=== PATIENT | male | born 1955 | race Caucasian/White ===

== ENCOUNTER → 2017-03-04 | Outpatient (REF) | payer OTHER ==
[2017-03-04 10:10] LABS: BASO % 0.2 % (0.0-1.0); EOS # 0.1 K/mm3 (0.0-0.50); EOS % 1.9 % (0.0-3.0); LARGE UNSTAINED CELL # 0.1 K/mm3 (0.0-0.4); LARGE UNSTAINED CELL % 1.8 % (0.0-4.0); LYMPH # 1.9 K/mm3 (1.5-4.5); MEAN CORPUSCULAR HEMOGLOBIN 34.1 pg (27.0-33.0); MEAN CORPUSCULAR HGB CONC 35.6 g/dl (32.0-36.5); MEAN CORPUSCULAR VOLUME 95.8 fl (80.0-96.0); MONO # 0.4 K/mm3 (0.0-0.8); MONO % 5.2 % (0.0-5.0); NEUTROPHILS # 4.3 K/mm3 (1.8-7.7); NEUTROPHILS % 64.9 % (36.0-66.0); PLATELET COUNT, AUTOMATED 141 k/mm3 (150-450); RED CELL DISTRIBUTION WIDTH 12.6 % (11.5-14.5); WHITE BLOOD COUNT 6.7 K/mm3 (4.0-10.0)
[2017-03-04 10:42] LABS: ALBUMIN 4.2 GM/DL (3.2-5.2); ALKALINE PHOSPHATASE 71 U/L (45-117); ALT/SGPT 47 U/L (12-78); ANION GAP 8 MEQ/L (8-16); AST/SGOT 23 U/L (15-37); BILIRUBIN,TOTAL 1.1 MG/DL (0.2-1.0); BLOOD UREA NITROGEN 15 MG/DL (7-18); CALCIUM LEVEL 9.4 MG/DL (8.8-10.2); CARBON DIOXIDE LEVEL 30 MEQ/L (21-32); CHLORIDE LEVEL 101 MEQ/L (98-107); CHOLESTEROL LEVEL 121 MG/DL (<200); CREATININE FOR GFR 1.05 MG/DL (0.70-1.30); GLOMERULAR FILTRATION RATE > 60.0 (>49); GLUCOSE, FASTING 96 MG/DL (80-110); POTASSIUM SERUM 4.2 MEQ/L (3.5-5.1); SODIUM LEVEL 139 MEQ/L (136-145); TOTAL PROTEIN 7.2 GM/DL (6.4-8.2); TRIGLYCERIDES LEVEL 247 MG/DL (<150)
== END ==
LOC: M LABDRAW1 09:41
PROVIDERS: ATTEND Family Medicine
DX: I10 Essential (primary) hypertension (principal)

== ENCOUNTER → 2017-09-05 | Outpatient (REF) | payer OTHER | LOC: M LABDRAW1 07:43 | PROVIDERS: ATTEND Family Medicine | DX: R73.01 Impaired fasting glucose (principal) ==

== ENCOUNTER → 2018-03-06 | Outpatient (REF) | payer OTHER ==
[2018-03-06 11:51] LABS: BASO % 0.3 % (0.0-1.0); EOS # 0.1 10^3/uL (0.0-0.50); EOS % 1.7 % (0.0-3.0); HEMATOCRIT 45.5 % (42.0-52.0); HEMOGLOBIN 15.2 g/dl (13.5-17.5); IMMATURE GRANULOCYTE % 0.2 % (0-3.0); LYMPH % 30.8 % (24.0-44.0); MEAN CORPUSCULAR HEMOGLOBIN 32.5 pg (27.0-33.0); MEAN CORPUSCULAR HGB CONC 33.4 g/dl (32.0-36.5); MEAN CORPUSCULAR VOLUME 97.4 fl (80.0-96.0); MONO # 0.5 10^3/uL (0.0-0.8); NEUTROPHILS # 3.9 10^3/uL (1.8-7.7); PLATELET COUNT, AUTOMATED 132 10^3/uL (150-450); RED BLOOD COUNT 4.67 10^6/uL (4.30-6.10); RED CELL DISTRIBUTION WIDTH 13.2 % (11.5-14.5); WHITE BLOOD COUNT 6.6 10^3/uL (4.0-10.0)
[2018-03-06 12:07] LABS: ALBUMIN 4.1 GM/DL (3.2-5.2); ALBUMIN/GLOBULIN RATIO 1.46 (1.00-1.93); ALKALINE PHOSPHATASE 68 U/L (45-117); ALT/SGPT 39 U/L (12-78); ANION GAP 8 MEQ/L (8-16); AST/SGOT 17 U/L (7-37); BLOOD UREA NITROGEN 20 MG/DL (7-18); CALCIUM LEVEL 9.1 MG/DL (8.8-10.2); CARBON DIOXIDE LEVEL 28 MEQ/L (21-32); CHLORIDE LEVEL 104 MEQ/L (98-107); CHOLESTEROL LEVEL 102 MG/DL (<200); CREATININE FOR GFR 0.88 MG/DL (0.70-1.30); GLOMERULAR FILTRATION RATE > 60.0 (>49); GLUCOSE, FASTING 100 MG/DL (70-100); HDL CHOLESTEROL 33 MG/DL (>40); NON-HDL-C 69 MG/DL; POTASSIUM SERUM 4.3 MEQ/L (3.5-5.1); SODIUM LEVEL 140 MEQ/L (136-145); TOTAL PROTEIN 6.9 GM/DL (6.4-8.2); TRIGLYCERIDES LEVEL 190 MG/DL (<150)
[2018-03-06 12:52] LABS: ESTIMATED AVERAGE GLUCOSE 120 MG/DL (60-110); HEMOGLOBIN A1c 5.8 %
== END ==
LOC: M LABDRAW1 11:29
DX: I10 Essential (primary) hypertension (principal); R73.01 Impaired fasting glucose

== ENCOUNTER → 2019-02-23 | Outpatient (REF) | payer MEDICARE, OTHER ==
[2019-02-23 11:38] LABS: BASO % 0.6 % (0.0-1.0); EOS # 0.1 10^3/uL (0.0-0.50); EOS % 1.5 % (0.0-3.0); HEMATOCRIT 45.1 % (42.0-52.0); HEMOGLOBIN 15.8 g/dl (13.5-17.5); LYMPH % 30.4 % (24.0-44.0); MEAN CORPUSCULAR HEMOGLOBIN 33.2 pg (27.0-33.0); MEAN CORPUSCULAR VOLUME 94.7 fl (80.0-96.0); MONO # 0.5 10^3/uL (0.0-0.8); MONO % 7.5 % (0.0-5.0); NEUTROPHILS % 59.9 % (36.0-66.0); PLATELET COUNT, AUTOMATED 142 10^3/uL (150-450); RED BLOOD COUNT 4.76 10^6/uL (4.30-6.10); WHITE BLOOD COUNT 6.7 10^3/uL (4.0-10.0)
[2019-02-23 12:00] LABS: HEMOGLOBIN A1c 6.2 %
[2019-02-23 12:35] LABS: ALBUMIN 4.1 GM/DL (3.2-5.2); ALT/SGPT 49 U/L (12-78); BILIRUBIN,TOTAL 1.3 MG/DL (0.2-1.0); BLOOD UREA NITROGEN 15 MG/DL (7-18); CALCIUM LEVEL 8.7 MG/DL (8.8-10.2); CARBON DIOXIDE LEVEL 25 MEQ/L (21-32); CHLORIDE LEVEL 101 MEQ/L (98-107); CHOLESTEROL LEVEL 131 MG/DL (<200); CHOLESTEROL RISK RATIO 4.678 (<5); GLOMERULAR FILTRATION RATE > 60.0 (>49); GLUCOSE, FASTING 105 MG/DL (70-100); HDL CHOLESTEROL 28 MG/DL (>40); NON-HDL-C 103 MG/DL; POTASSIUM SERUM 3.7 MEQ/L (3.5-5.1); SODIUM LEVEL 136 MEQ/L (136-145); TRIGLYCERIDES LEVEL 510 MG/DL (<150)
[2019-02-23 13:02] LABS: TOTAL 25(OH) VITAMIN D 47.9 NG/ML (30.0-100.0)
== END ==
LOC: M LABDRAW1 11:03
PROVIDERS: ATTEND Family Medicine
DX: I10 Essential (primary) hypertension (principal); R73.01 Impaired fasting glucose; E55.9 Vitamin D deficiency, unspecified

== ENCOUNTER → 2019-08-18 | Outpatient (REF) | payer MEDICARE, OTHER ==
[2019-08-18 11:59] LABS: CHOLESTEROL RISK RATIO 4.483 (<5)
[2019-08-18 13:31] LABS: HEMOGLOBIN A1c 6.6 %
== END ==
LOC: M LABDRAW1 11:00
PROVIDERS: ATTEND Physician Assistant
DX: E78.2 Mixed hyperlipidemia (principal); R73.01 Impaired fasting glucose

== ENCOUNTER → 2019-11-24 | Outpatient (REF) | payer MEDICARE, OTHER ==
[2019-11-24 17:45] LABS: HEMOGLOBIN A1c 6.2 %
== END ==
LOC: M LABDRAW1 15:26
PROVIDERS: ATTEND Family Medicine
DX: R73.03 Prediabetes (principal)

== ENCOUNTER → 2020-02-23 | Outpatient (CLI) | payer MEDICARE, OTHER ==
[2020-02-23 12:20] LABS: CHOLESTEROL LEVEL 128 MG/DL (<200); CHOLESTEROL RISK RATIO 4.923 (<5); HDL CHOLESTEROL 26 MG/DL (>40); NON-HDL-C 102 MG/DL; TRIGLYCERIDES LEVEL 443 MG/DL (<150)
[2020-02-23 13:42] LABS: HEMOGLOBIN A1c 6.6 %
== END ==
LOC: M LAB 10:54
PROVIDERS: ATTEND Nurse Practitioner Family
DX: R73.03 Prediabetes (principal)

== ENCOUNTER → 2020-05-25 | Outpatient (CLI) | payer MEDICARE, OTHER ==
[2020-05-25 11:55] LABS: ALBUMIN 4.1 GM/DL (3.2-5.2); ALT/SGPT 84 U/L (12-78); BILIRUBIN,TOTAL 0.5 MG/DL (0.2-1.0); BLOOD UREA NITROGEN 18 MG/DL (7-18); CALCIUM LEVEL 9.6 MG/DL (8.8-10.2); CARBON DIOXIDE LEVEL 28 MEQ/L (21-32); CHLORIDE LEVEL 102 MEQ/L (98-107); GLOMERULAR FILTRATION RATE > 60.0 (>49); GLUCOSE, FASTING 133 MG/DL (70-100); SODIUM LEVEL 137 MEQ/L (136-145); TOTAL PROTEIN 7.2 GM/DL (6.4-8.2)
[2020-05-25 11:59] LABS: HEMOGLOBIN A1c 6.4 %
[2020-05-25 12:03] LABS: MALB URINE SIEMENS 25.8 MG/L
== END ==
LOC: M LAB 10:21
PROVIDERS: ATTEND Nurse Practitioner Family
DX: R73.03 Prediabetes (principal); I10 Essential (primary) hypertension; E78.2 Mixed hyperlipidemia

== ENCOUNTER → 2020-11-21 | Outpatient (CLI) | payer MEDICARE, OTHER ==
[2020-11-21 10:18] LABS: HEMOGLOBIN A1c 5.8 %
[2020-11-21 10:29] LABS: MALB URINE SIEMENS 24.4 MG/L; MAU/CREAT RATIO 10.1 MCG/MG (0.0-30.0)
[2020-11-21 10:36] LABS: ALBUMIN 4.2 GM/DL (3.2-5.2); ALT/SGPT 64 U/L (12-78); BILIRUBIN,TOTAL 0.9 MG/DL (0.2-1.0); BLOOD UREA NITROGEN 22 MG/DL (7-18); CALCIUM LEVEL 9.4 MG/DL (8.8-10.2); CARBON DIOXIDE LEVEL 25 MEQ/L (21-32); CHLORIDE LEVEL 107 MEQ/L (98-107); CHOLESTEROL LEVEL 145 MG/DL (<200); CREATININE FOR GFR 0.89 MG/DL (0.70-1.30); GLOMERULAR FILTRATION RATE > 60.0 (>49); GLUCOSE, FASTING 111 MG/DL (70-100); HDL CHOLESTEROL 27 MG/DL (>40); NON-HDL-C 118 MG/DL; POTASSIUM SERUM 3.9 MEQ/L (3.5-5.1); SODIUM LEVEL 139 MEQ/L (136-145); TOTAL PROTEIN 7.3 GM/DL (6.4-8.2); TRIGLYCERIDES LEVEL 481 MG/DL (<150)
== END ==
LOC: M LAB 08:57
PROVIDERS: ATTEND Nurse Practitioner Family
DX: R73.03 Prediabetes (principal)

== ENCOUNTER 2021-08-29 16:11 | Emergency (ER) | payer MEDICARE, OTHER ==
[~2021-08-29] VITALS: Ht 172.7 cm; Wt 90.9 kg
--- OUTSIDE RECORDS SUMMARY | 2021-08-29 16:17 | CCD ---
Author Author [facility] Organization [facility] Address Unknown Phone Unavailable Care Team Providers Care Dry Cell Assembly Supervisor Name Role Phone Pleskach, Ceci BUCKET PUSHER Unavailable Unavailable Pleskach, Ceci BUCKET PUSHER Unavailable Unavailable Pleskach, Ceci BUCKET PUSHER Unavailable Unavailable Pleskach, Ceci BUCKET PUSHER Unavailable Unavailable Pleskach, Ceci BUCKET PUSHER Unavailable Unavailable Pleskach, Ceci BUCKET PUSHER Unavailable Unavailable Pleskach, Ceci BUCKET PUSHER Unavailable Unavailable Pleskach, Ceci BUCKET PUSHER Unavailable Unavailable Pleskach, Ceci BUCKET PUSHER Unavailable Unavailable Pleskach, Ceci BUCKET PUSHER Unavailable Unavailable Pleskach, Ceci BUCKET PUSHER Unavailable Unavailable Pleskach, Ceci BUCKET PUSHER Unavailable Unavailable Pleskach, Ceci BUCKET PUSHER Unavailable Unavailable Pleskach, Ceci BUCKET PUSHER Unavailable Unavailable Pleskach, Ceci BUCKET PUSHER Unavailable Unavailable Pleskach, Ceci BUCKET PUSHER Unavailable Unavailable Pleskach, Ceci BUCKET PUSHER Unavailable Unavailable Pleskach, Ceci BUCKET PUSHER Unavailable Unavailable Pleskach, Ceci BUCKET PUSHER Unavailable Unavailable Pleskach, Ceci BUCKET PUSHER Unavailable Unavailable Pleskach, Ceci BUCKET PUSHER Unavailable Unavailable Pleskach, Ceci BUCKET PUSHER Unavailable Unavailable Pleskach, Ceci BUCKET PUSHER Unavailable Unavailable Pleskach, Ceci BUCKET PUSHER Unavailable Unavailable Pleskach, Ceci BUCKET PUSHER Unavailable Unavailable Pleskach, Ceci BUCKET PUSHER Unavailable Unavailable Pleskach, Ceci BUCKET PUSHER Unavailable Unavailable Pleskach, Ceci BUCKET PUSHER Unavailable Unavailable Pleskach, Ceci BUCKET PUSHER Unavailable Unavailable Pleskach, Ceci BUCKET PUSHER Unavailable Unavailable Pleskach, Ceci BUCKET PUSHER Unavailable Unavailable Pleskach, Ceci BUCKET PUSHER Unavailable Unavailable Pleskach, Ceci BUCKET PUSHER Unavailable Unavailable Pleskach, Ceci BUCKET PUSHER Unavailable Unavailable Pleskach, Ceci BUCKET PUSHER Unavailable Unavailable Pleskach, Ceci BUCKET PUSHER Unavailable Unavailable Pleskach, Ceci BUCKET PUSHER Unavailable Unavailable Pleskach, Ceci BUCKET PUSHER Unavailable Unavailable Pleskach, Ceci BUCKET PUSHER Unavailable Unavailable Pleskach, Ceci BUCKET PUSHER Unavailable Unavailable Pleskach, Ceci BUCKET PUSHER Unavailable Unavailable Pleskach, Ceci BUCKET PUSHER Unavailable Unavailable Pleskach, Ceci BUCKET PUSHER Unavailable Unavailable Pleskach, Ceci BUCKET PUSHER Unavailable Unavailable Re-disclosure Warning The records that you are about to access may contain information from federally-assisted alcohol or drug abuse programs. If such information is present, then the following federally mandated warning applies: This information has been disclosed to you from records protected by federal confidentiality rules (42 CFR part 2). The federal rules prohibit you from making any further disclosure of this information unless further disclosure is expressly permitted by the written consent of the person to whom it pertains or as otherwise permitted by 42 CFR part 2. A general authorization for the release of medical or other information is NOT sufficient for this purpose. The Federal rules restrict any use of the information to criminally investigate or prosecute any alcohol or drug abuse patient.The records that you are about to access may contain highly sensitive health information, the redisclosure of which is protected by Article 27-F of the [facility] Public Health law. If you continue you may have access to information: Regarding HIV / AIDS; Provided by facilities licensed or operated by the [facility] Office of Mental Health; or Provided by the [facility] Office for People With Developmental Disabilities. If such information is present, then the following [facility] mandated warning applies: This information has been disclosed to you from confidential records which are protected by state law. State law prohibits you from making any further disclosure of this information without the specific written consent of the person to whom it pertains, or as otherwise permitted by law. Any unauthorized further disclosure in violation of state law may result in a fine or care home sentence or both. A general authorization for the release of medical or other information is NOT sufficient authorization for further disc losure. Family History Family Member Name Family Member Gender Family Member Status Date o f Status Description Data Source(s) Unknown Unknown Problem [facility] Encounters Encounter Providers Location Date Indications Data Source(s ) Outpatient Attender: Ceci Goss [facility] Main Office 11/28/2020 0 7:00:00 AM EST [facility] Medications No Information Insurance Providers Payer name Policy type / Coverage type Policy ID Covered alliance party ID Covered alliance party's relationship to berman Policy Berman Plan Information FOR LIFE [id number] SP [id number] MEDICARE [id number] SP [id number] [facility] [id number] SP [id number] [facility] Claim Medigap Part B [id number] Self [id number] Medicare [place] Medicare Primary [id number] Self [id number] [facility] Claim Commercial [id number] Self [id number] [facility] [id number] SP [id number] [facility] Commercial [id number] Self [id number] [facility] Commercial [id number] Self [id number] [facility] Commercial [id number] [facility] [id number] Problems, Conditions, and Diagnoses No Information Surgeries/Procedures No Information Results ID Date Data Source [id number] 11/21/2020 09:13:00 AM EST [facility] Name Value Range Interpretation Code Description Data Estrella rce(s) Supporting Document(s) Malb Urine Siemens 24.4 mg/L [facility] Creatinine, Urine 240.0 mg/dL [facility] Ocdy/Creat Ratio 10.1 MCG/MG 0.0-30.0 [facility] ([facility] THE [employer] STATES THAT MICROALBUMINURIA IS PRESENT IF THE MICROALBUMIN/CREATININE RATIO EXCEEDS 30 MCG/MG. THE THRESHOLD FOR CLINICAL ALBUMINURIA IS REACHED AT 300 MCG/MG. THE CLASSIFICATION OF A PATIENT SHOULD BE BASED UPON AT LEAST 2 OF 3 ABNORMAL RESULTS ON SPECIMENS COLLECTED WITHIN A 3 TO 6 MONTH TIME FRAME. ID Date Data Source [id number] 11/21/2020 09:08:00 AM EST [facility] Name Value Range Interpretation Code Description Data Estrella rce(s) Supporting Document(s) HDL Cholesterol 27 mg/dL [facility] Cholesterol Level 145 mg/dL [facility] Triglycerides Level 481 mg/dL [facility] Cholesterol Risk Ratio 5.370 [facility] Non-HDL-C 118 mg/dL [facility] ID Date Data Source [id number] 11/21/2020 09:08:00 AM EST [facility] Name Value Range Interpretation Code Description Data Estrella rce(s) Supporting Document(s) Hemoglobin A1c/Hemoglobin.total in Blood 5.8 % [facility] <content>REFERENCE RANGES:</content><br/ ><content></content>
<content><=5.6% NORMAL</content>
<content>5.7-6.4% SUGGESTS IMPAIRED GLUCOSE METABOLISM/PREDIABETIC</content>
<content>>= 6.5% ABNORMAL</content>
<content></content> Estimated Average Glucose 120 mg/dL 60-110 [facility] ID Date Data Source [id number] 11/21/2020 09:08:00 AM EST [facility] Name Value Range Interpretation Code Description Data Estrella rce(s) Supporting Document(s) Glucose, Fasting 111 mg/dL 70-100 [facility] Creatinine For GFR 0.89 mg/dL 0.70-1.30 [facility] Blood Urea Nitrogen 22 mg/dL 7-18 [facility] Glomerular Filtration Rate Laboratory test result [facility] <content>Units are mL/min/1.73 m2</content>
<content></content>
<content>Chronic Kidney Disease Staging per NKF:</content>
<content></content>
<content>Stage I & II GFR >=60 Normal to Mildly Decreased</content>
<content>Stage III GFR 30-59 Moderately Decreased</content>
<content>Stage IV GFR 15-29 Severely Decreased</content>
<content>Stage V GFR <15 Very Little GFR Left</content>
<content>ESRD GFR <15 on DECKHAND CLAM DREDGE</content>
<content></content> Chloride Level 107 meq/L 98-107 [facility] Sodium Level 139 meq/L 136-145 [facility] Potassium Serum 3.9 meq/L 3.5-5.1 [facility] Carbon Dioxide Level 25 meq/L 21-32 [facility] ([facility] Anion Gap 7 meq/L 8-16 [facility] Ast/Sgot 30 U/L 7-37 [facility] Calcium Level 9.4 mg/dL 8.8-10.2 [facility] Alkaline Phosphatase 72 U/L 45-117 [facility] Bilirubin,Total 0.9 mg/dL 0.2-1.0 [facility] Alt/SGPT 64 U/L 12-78 [facility] Total Protein 7.3 GM/DL 6.4-8.2 [facility] Albumin/Globulin Ratio 1.4 [facility] Albumin 4.2 GM/DL 3.2-5.2 [facility] Procedure Social History Code Duration Value Status Description Data Source(s ) Smoking 11/28/2020 12:00:00 AM EST - 12/22/2018 12:00:00 AM EDT Patient is a former smoker completed Patient is a former smoker [facility] Vital Signs ID Date Data Source UNK Name Value Range Interpretation Code Description Data Source(s) Systolic blood pressure 165 mm[Hg] 165 mm[Hg] M [facility] Heart rate 44 /min 44 /min [facility] Diastolic blood pressure 67 mm[Hg] 67 mm[Hg] [facility] Body temperature 97.7 [degF] 97.7 [degF] [facility] Systolic blood pressure 155 mm[Hg] 155 mm[Hg] M [facility] Respiratory rate 16 /min 16 /min [facility] ( [facility] Body height 67.5 [in_i] 67.5 [in_i] [facility] 5'7.50" Diastolic blood pressure 67 mm[Hg] 67 mm[Hg] [facility] Body weight 212.50 [lb_av] 212.50 [lb_av] [facility] Oxygen saturation in Arterial blood by Pulse oximetry 98 % 98 % [facility] [place] body weight 148 [lb_av] 148 [lb_av] [facility] Body mass index (BMI) [Ratio] 32.8 kg/m2 32.8 k g/m2 [facility]
--- OUTSIDE RECORDS SUMMARY | 2021-08-29 16:17 | CCD ---
Continuity of Care Document (CCD) Created on: 08/07/2021 Armaan Suresh External Reference #: [id number] : [id number] Sex: Male Author Author [facility]an [facility] Organization Unknown Address [address] [place] [address] Phone [phone] Care Team Providers Care Tube Draw Helper Name Role Phone [facility] - Physical Therapist AUTM [phone] Problems Active Problems Provider Date Mixed hyperlipidemia Nohelia Langston M.D. Onset: 011 Essential hypertension Nohelia Langston M.D. Onset: 03/19 Obesity Nohelia Langston M.D. Onset: 03/19/20 11 Social History Type Date Description Comments Sex Unknown Tobacco Use Start: Unknown End: Unknown denies cigarette use Tobacco Use Start: Unknown Never Used Smokeless Tobacco ETOH Use Occasionally consumes alcohol 2 drinks a week Recreational Drug Use Denies Drug Use Tobacco Use Start: Unknown End: Patient is a former smoker 2 pipes per day, 3-4 years Smoking Status Reviewed: 11/28/20 Patient is a former smoker 2 pipes per day, 3- 4 years Exercise Type/Frequency Exercises sporadically Tattoo/Piercing None Sun Exposure Uses sunscreen Occasionally Seat Belt/Car Seat Always uses seat belt Bike Helmet Never Does not bike ri de. Smoke Alarms Yes Smoke Alarms Carbon Monoxide Detector: Yes Allergies and adverse reactions Active Allergies Criticality Reaction | Severity Comments Date NKDA Unable to assess criticality 04/16/2011 Seasonal Unable to assess criticality hay fever an d pollen 11/05/2007 Cough Syrups-OTC Unable to assess criticality ab used to get high as a teenager 11/05/2007 Medications Active Medications SIG Qnty Indications Ordering Provide r Date Micardis HCT 80-25mg Tablets Take 1 Tablet Daily 90tabs I10 Ceci Quan FNP 05/31/2020 Vitamin D (Ergocalciferol) 1.25mg (52072 Ut) Capsules Take 1 Capsule Weekly 12caps E55.9 Ceci Quan FN P 08/03/2019 Ventolin HFA 108(90Base) mcg/Act A erosol 2 puffs every 4 hours as needed 18gm R05 Nohelia Langston M.D. 07/09/2016 Fluticasone Propionate 50mcg/Act Suspension one to two sprays each side of nose daily as needed 3units R09.82 Nohelia Langston M.D. 11/30/2014 Simvastatin 20mg Tablets 1 by mouth every day 90tabs I10 Nohelia Langston M.D. 015 Sertraline HCL 100mg Tablets 1 by mouth every day 90tabs Nohelia Langston M.D. [address] 1 po qd as needed for headaches otc Unknown Immunizations CPT Code Status Date Vaccine Lot # [id number] Given 06/24/2019 Influenza Virus Vaccine, Steffen drivalent,multidose vial [id number] 20688 Given 07/01/2018 Influenza Virus Vaccine, Steffen drivalent,multidose vial [id number] 22884 Given 03/10/2018 Boostrix (Tdap) Tetnus, Diphtheria Toxoids & Acellular Pertussis [id number] 08773 Given 06/24/2017 Influenza Vaccination [id number] 09687 Given 07/09/2016 Influenza Vaccination [id number] 10112 Given 07/06/2015 Influenza Vaccination [id number] 39552 Given 07/13/2013 Influenza Vaccination [id number] 47423 Given 06/06/2012 Influenza Vaccination [id number] 40182 Given 07/02/2011 Influenza Vaccination [id number] Given 07/17/2010 Influenza Vaccination [id number] 69390 Given 07/08/2009 Influenza Vaccination [id number] 47602 Given 07/12/2008 Influenza Vaccination [id number] 45550 Refused 02/25/2019 Zoster (Shingles ) Vaccine (HZV), Recombinant, Subunit, Adjuvanted [id number] Refused 02/25/2019 Prevnar 13 Vital Signs Date Vital Result Comment 11/28/2020 8:14am BP Systolic 165 mmHg BP Diastolic 67 mmHg BP Systolic Recheck 155 mmHg BP Diastolic Recheck 67 mmHg Heart Rate 44 /min Body Temperature 97.7 F Respiratory Rate 16 /min Height 67.5 inches 5'7.50" Weight 212.50 lb O2 % BldC Oximetry 98 % Peak Expiratory Flow Rate 460 Estimated Peak Flow Rate [place] Body Weight 148 lb BMI (Body Mass Index) 32.8 kg/m2 05/31/2020 8:01am BP Systolic 155 mmHg BP Diastolic 76 mmHg BP Systolic Recheck 153 mmHg BP Diastolic Recheck 72 mmHg Heart Rate 57 /min Body Temperature 96.2 F Respiratory Rate 17 /min Height 67.5 inches 5'7.50" Weight 218.25 lb O2 % BldC Oximetry 96 % Peak Expiratory Flow Rate 460 Estimated Peak Flow Rate Right Visual Acuity Distance 20/40 uncorrected Left Visual Acuity Distance 20/30-2 Both Visual Acuity Distance 20/30 [place] Body Weight 148 lb BMI (Body Mass Index) 33.7 kg/m2 Results Description No Information Available Procedures Description No Information Available Medical Devices Description No Information Available Encounters Description No Information Available Assessments Description No Information Available Plan of Treatment 11/28/2020 - Ceci Quan FNP* I10 Essential (primary) hypertension* Comments:* controlled on current medications * Follow up:* 6 months, with labs for annual * E78.2 Mixed hyperlipidemia* Comments:* controlled, continue statin * R73.03 Prediabetes* Comments:* A1C is down to 5.8, continue to monitor * Recommendations:* Follow a lower carbohydrate diet with regular cardiovascular exercise. We recommend at least 30 minutes of cardiovascular exercise 3-5 days per week. Please do not hesitate to contact us with any questions or concerns. We would be happy to set you up with a dietitian for further dietary assistance. Functional Status Functional Condition Comment Date Status Glasses 1.5 reading glasses Active Independent with all ADL's Activ e Hearing Aid in both ears doesn't wear all the time Active Independent with cleaning Active Independent with cooking Active Independent with medication management Active Independent with money management Active Mental Status Mental Condition Comment Date Status None Active Referrals Description No Information Available
[2021-08-29] MEDS ORDERED: FLUTISP NARES (16:33)
[2021-08-29] MEDS ORDERED: DRIS50003 PO ×2 (16:33)
[2021-08-29] MEDS ORDERED: RANI15TA PO (16:33)
[2021-08-29] MEDS ORDERED: MICA80TA2 (16:33)
[2021-08-29] MEDS ORDERED: SIMV20TA22 (16:33)
[2021-08-29] MEDS ORDERED: ZOLO100T (16:33)
[2021-08-29] MEDS ORDERED: ACETAMINOPHEN 500 MG TAB PO ONE (17:05)
--- NOTE | 2021-08-29 17:17 | REP ---
INDICATION: Coronavirus workup. COMPARISON: 03/19/2011. TECHNIQUE: Single portable AP view of the chest was performed. FINDINGS: There may be some mild peripheral infiltrate in the bilateral lung bases. The heart is not significantly enlarged. The mediastinal silhouette is unremarkable. The visualized osseous structures are intact. IMPRESSION: There may be some mild peripheral infiltrate in the bilateral lung bases. <Electronically signed by Payam Burgos > 08/29/21 1190
[2021-08-29 17:34] LABS: BASO % 0.2 % (0.0-1.0); EOS % 0.2 % (0.0-3.0); HEMATOCRIT 46.2 % (42.0-52.0); HEMOGLOBIN 16.5 g/dl (13.5-17.5); LYMPH # 0.8 10^3/uL (1.5-5.0); LYMPH % 17.4 % (24.0-44.0); MEAN CORPUSCULAR HEMOGLOBIN 31.7 pg (27.0-33.0); MEAN CORPUSCULAR HGB CONC 35.7 g/dl (32.0-36.5); MEAN CORPUSCULAR VOLUME 88.8 fl (80.0-96.0); MONO # 0.4 10^3/uL (0.0-0.8); MONO % 8.4 % (2.0-8.0); NEUTROPHILS # 3.4 10^3/uL (1.5-8.5); NEUTROPHILS % 73.6 % (36.0-66.0); PLATELET COUNT, AUTOMATED 104 10^3/uL (150-450); WHITE BLOOD COUNT 4.6 10^3/uL (4.0-10.0)
[2021-08-29] MEDS ORDERED: NS 1,000 ML IV ONE (17:35)
--- OUTSIDE RECORDS SUMMARY | 2021-08-29 17:45 | CCD ---
Author Author [facility] Organization [facility] Address Unknown Phone Unavailable Care Team Providers Care Conventional Mortgage Underwriter Name Role Phone Pleskach, Ceci STUNT WOMAN Unavailable Unavailable Pleskach, Ceci STUNT WOMAN Unavailable Unavailable Pleskach, Ceci STUNT WOMAN Unavailable Unavailable Pleskach, Ceci STUNT WOMAN Unavailable Unavailable Pleskach, Ceci STUNT WOMAN Unavailable Unavailable Pleskach, Ceci STUNT WOMAN Unavailable Unavailable Pleskach, Ceci STUNT WOMAN Unavailable Unavailable Pleskach, Ceci STUNT WOMAN Unavailable Unavailable Pleskach, Ceci STUNT WOMAN Unavailable Unavailable Pleskach, Ceci STUNT WOMAN Unavailable Unavailable Pleskach, Ceci STUNT WOMAN Unavailable Unavailable Pleskach, Ceci STUNT WOMAN Unavailable Unavailable Pleskach, Ccei STUNT WOMAN Unavailable Unavailable Pleskach, Ceci STUNT WOMAN Unavailable Unavailable Pleskach, Ceci STUNT WOMAN Unavailable Unavailable Pleskach, Ceci STUNT WOMAN Unavailable Unavailable Pleskach, Ceci STUNT WOMAN Unavailable Unavailable Pleskach, Ceci STUNT WOMAN Unavailable Unavailable Pleskach, Ceci STUNT WOMAN Unavailable Unavailable Pleskach, Ceci STUNT WOMAN Unavailable Unavailable Pleskach, Ceci STUNT WOMAN Unavailable Unavailable Pleskach, Ceci STUNT WOMAN Unavailable Unavailable Pleskach, Ceci STUNT WOMAN Unavailable Unavailable Pleskach, Ceci STUNT WOMAN Unavailable Unavailable Pleskach, Ceci STUNT WOMAN Unavailable Unavailable Pleskach, Ceci STUNT WOMAN Unavailable Unavailable Pleskach, Ceci STUNT WOMAN Unavailable Unavailable Pleskach, Ceci STUNT WOMAN Unavailable Unavailable Pleskach, Ceci STUNT WOMAN Unavailable Unavailable Pleskach, Ceci STUNT WOMAN Unavailable Unavailable Pleskach, Ceci STUNT WOMAN Unavailable Unavailable Pleskach, Ceci STUNT WOMAN Unavailable Unavailable Pleskach, Ceci STUNT WOMAN Unavailable Unavailable Pleskach, Ceci STUNT WOMAN Unavailable Unavailable Pleskach, Ceci STUNT WOMAN Unavailable Unavailable Pleskach, Ceci STUNT WOMAN Unavailable Unavailable Pleskach, Ceci STUNT WOMAN Unavailable Unavailable Pleskach, Ceci STUNT WOMAN Unavailable Unavailable Pleskach, Ceci STUNT WOMAN Unavailable Unavailable Pleskach, Ceci STUNT WOMAN Unavailable Unavailable Pleskach, Ceci STUNT WOMAN Unavailable Unavailable Pleskach, Ceci STUNT WOMAN Unavailable Unavailable Pleskach, Ceci STUNT WOMAN Unavailable Unavailable Pleskach, Ceci STUNT WOMAN Unavailable Unavailable Re-disclosure Warning The records that [...] is protected by Article 27-F of the [facility] Public Health law. If you continue you may have access to information: Regarding HIV / AIDS; Provided by facilities licensed or operated by the [facility] Office of Mental Health; or Provided by the [facility] Office for People With Developmental Disabilities. If such information is present, then the following [facility] mandated warning applies: This information has [...] law may result in a fine or penitentiary sentence or both. A general authorization for the release of medical or other information is NOT sufficient authorization for further disc losure. Family History Family Member Name Family Member Gender Family Member Status Date o f Status Description Data Source(s) Unknown Unknown Problem [facility] Encounters Encounter Providers Location Date Indications Data Source(s ) Outpatient Attender: Ceci Goss [facility] Main Office 11/28/2020 0 7:00:00 AM EST [facility] ([facility] Medications No Information Insurance Providers Payer name Policy type / Coverage type Policy ID Covered constitution party ID Covered constitution party's relationship to berman Policy Berman Plan Information FOR LIFE [id number] SP [id number] MEDICARE [id number] SP [id number] [facility] [id number] SP [id number] [facility] Claim Medigap Part B [id number] Self [id number] Medicare [place] Medicare Primary [id number] Self [id number] [facility] Claim Commercial [id number] Self [id number] [facility] [id number] SP [id number] [facility] Commercial [id number] Self [id number] [facility] Commercial [id number] Self [id number] [facility] Commercial [id number] [facility] [id number] Problems, Conditions, and Diagnoses No Information Surgeries/Procedures No Information Results ID Date Data Source [id number] 11/21/2020 09:13:00 AM EST [facility] ([facility] Name Value Range Interpretation Code Description Data Estrella rce(s) Supporting Document(s) Malb Urine Siemens 24.4 mg/L [facility] Creatinine, Urine 240.0 mg/dL [facility] ([facility] Cody/Creat Ratio 10.1 MCG/MG 0.0-30.0 [facility] ([facility] THE [place] STATES THAT MICROALBUMINURIA IS PRESENT IF THE MICROALBUMIN/CREATININE RATIO EXCEEDS 30 MCG/MG. THE THRESHOLD FOR CLINICAL ALBUMINURIA IS REACHED AT 300 MCG/MG. THE CLASSIFICATION OF A PATIENT SHOULD BE BASED UPON AT LEAST 2 OF 3 ABNORMAL RESULTS ON SPECIMENS COLLECTED WITHIN A 3 TO 6 MONTH TIME FRAME. ID Date Data Source [id number] 11/21/2020 09:08:00 AM EST [facility] ([facility] [...] [facility] ID Date Data Source [id number] 11/21/2020 09:08:00 AM EST [facility] ([facility] Name Value Range Interpretation Code Description Data Estrella rce(s) Supporting Document(s) Hemoglobin A1c/Hemoglobin.total in Blood 5.8 % [facility] <content>REFERENCE RANGES:</content><br/ ><content></content>
<content><=5.6% NORMAL</content>
<content>5.7-6.4% SUGGESTS IMPAIRED GLUCOSE METABOLISM/PREDIABETIC</content>
<content>>= 6.5% ABNORMAL</content>
<content></content> Estimated Average Glucose 120 mg/dL 60-110 [facility] ID Date Data Source [id number] 11/21/2020 09:08:00 AM EST [facility] ([facility] [...] Little GFR Left</content>
<content>ESRD GFR <15 on WATER [employer]</content>
<content></content> Chloride Level 107 meq/L 98-107 [facility] [...] Value Range Interpretation Code Description Data Source(s) Heart rate 44 /min 44 /min [facility] Systolic blood pressure 165 mm[Hg] 165 mm[Hg] M [facility] ([facility] Diastolic blood pressure 67 mm[Hg] 67 mm[Hg] [facility] Systolic blood pressure 155 mm[Hg] 155 mm[Hg] M [facility] Body temperature 97.7 [degF] 97.7 [degF] [facility] Respiratory rate 16 /min 16 /min [facility] ( [facility] Body height 67.5 [in_i] 67.5 [in_i] [facility] 5'7.50" Body weight 212.50 [lb_av] 212.50 [lb_av] [facility] T ([facility] Oxygen saturation in Arterial blood by Pulse oximetry 98 % 98 % [facility] [place] body weight 148 [lb_av] 148 [lb_av] [facility] T ([facility] Body mass index (BMI) [Ratio] 32.8 kg/m2 32.8 k g/m2 [facility] Diastolic blood pressure 67 mm[Hg] 67 mm[Hg] [facility]
[2021-08-29 17:50] LABS: ALBUMIN 3.6 GM/DL (3.2-5.2); ALT/SGPT 66 U/L (12-78); BILIRUBIN,TOTAL 0.9 MG/DL (0.2-1.0); BLOOD UREA NITROGEN 17 MG/DL (7-18); CALCIUM LEVEL 8.3 MG/DL (8.8-10.2); CARBON DIOXIDE LEVEL 19 MEQ/L (21-32); CHLORIDE LEVEL 107 MEQ/L (98-107); CREATININE FOR GFR 0.93 MG/DL (0.70-1.30); GLOMERULAR FILTRATION RATE > 60.0 (>49); GLUCOSE, FASTING 122 MG/DL (70-100); POTASSIUM SERUM 3.7 MEQ/L (3.5-5.1); SODIUM LEVEL 136 MEQ/L (136-145); TOTAL PROTEIN 7.2 GM/DL (6.4-8.2)
[2021-08-29] MEDS ORDERED: ISOVUE-370 76% 100ML VIAL As Ordered ONE (18:04)
--- NOTE | 2021-08-29 18:50 | REPVR ---
PROCEDURE INFORMATION: Exam: CTA Chest With Contrast Exam date and time: 08/29/2021 6:08 PM Age: 66 years old Clinical indication: Abnormal findings; Abnormal diagnostic tests; Elevated d-dimer; Shortness of breath; Additional info: SOB, weakness, elev d-dimer, eval for pe TECHNIQUE: Imaging protocol: Computed tomographic angiography of the chest with contrast. 3D rendering (Not supervised by radiologist): MIP and/or 3D reconstructed images were created by the technologist. Radiation optimization: All CT scans at this facility use at least one of these dose optimization techniques: automated exposure control; mA and/or kV adjustment per patient size (includes targeted exams where dose is matched to clinical indication); or iterative reconstruction. Contrast material: ISOVUE 370; Contrast volume: 75 ml; Contrast route: INTRAVENOUS (IV); COMPARISON: CR PORTABLE CHEST X-RAY 08/29/2021 4:53 PM FINDINGS: Pulmonary arteries: There are no pulmonary emboli. Aorta: There is no aortic dissection or aneurysm. Lungs: Patchy ground-glass and semi solid pulmonary parenchymal infiltrates most pronounced in the left upper, lingular and lower lobes with minimal involvement in the right lower lobe. Findings consistent with multifocal pneumonitis, likely viral. Pleural spaces: Unremarkable. No pneumothorax. No pleural effusion. Heart: Mild cardiomegaly. Lymph nodes: Unremarkable. No enlarged lymph nodes. Spleen: There is mild splenomegaly with a maximum span of 14.5 centimeters. No focal abnormalities demonstrated. Bones/joints: The spine demonstrates mild degenerative changes. Soft tissues: Unremarkable. IMPRESSION: 1. Patchy ground-glass and semi solid pulmonary parenchymal infiltrates most pronounced in the left upper, lingular and lower lobes with minimal involvement in the right lower lobe. Findings consistent with multifocal pneumonitis, likely viral. 2. There is no aortic dissection or aneurysm. 3. There are no pulmonary emboli. 4. There is mild splenomegaly with a maximum span of 14.5 centimeters. No focal abnormalities demonstrated. 5. Mild cardiomegaly. Electronically signed by: Daron Garcia On 08/29/2021 18:49:39 PM
[2021-08-29 19:26] VITALS: BP 107/60
--- NOTE | 2021-08-30 14:14 | ECGEPIP ---
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
== END 2021-08-29 19:30 | disposition home or self-care (01) ==
LOC: M ED 16:11
DX: U07.1 COVID-19 (principal); J12.82 Pneumonia due to coronavirus disease 2019; I10 Essential (primary) hypertension; E11.9 Type 2 diabetes mellitus without complications; F41.9 Anxiety disorder, unspecified; Z91.048 Other nonmedicinal substance allergy status
CPT/HCPCS: 71045; 71275; 80047; 80053; 83605; 84145; 85025; 85379; 87040; 87798; 93005; 96374; 99284; Q9967

== ENCOUNTER 2023-02-03 19:46 | Emergency (ER) | payer MEDICARE, OTHER ==
[~2023-02-03] VITALS: Ht 172.7 cm; Wt 86.9 kg
[~2023-02-03 19:46] MED LIST: DRIS50003 PO; FLUT50SP17 NARES; MICA80TA2; RANI15TA PO; SIMV20TA22; ZOLO100T
[2023-02-03] MEDS ORDERED: NS 1,000 ML IV ONE (22:20)
[2023-02-03 22:47] LABS: BASO % 0.2 % (0.0-1.0); EOS # 0.1 10^3/uL (0.0-0.5); EOS % 0.7 % (0.0-3.0); HEMOGLOBIN 16.7 g/dl (13.5-17.5); LYMPH # 2.3 10^3/uL (1.5-5.0); LYMPH % 21.8 % (24.0-44.0); MEAN CORPUSCULAR HEMOGLOBIN 32.8 pg (27.0-33.0); MEAN CORPUSCULAR HGB CONC 35.5 g/dl (32.0-36.5); MEAN CORPUSCULAR VOLUME 92.3 fl (80.0-96.0); MONO # 0.5 10^3/uL (0.0-0.8); MONO % 4.9 % (2.0-8.0); NEUTROPHILS # 7.5 10^3/uL (1.5-8.5); NEUTROPHILS % 72.1 % (36.0-66.0); PLATELET COUNT, AUTOMATED 172 10^3/uL (150-450); RED BLOOD COUNT 5.09 10^6/uL (4.30-6.10); WHITE BLOOD COUNT 10.4 10^3/uL (4.0-10.0)
[2023-02-03 22:58] LABS: INR 0.93; PROTHROMBIN TIME 12.7 SECONDS (12.5-14.5)
[2023-02-03 23:34] LABS: ALBUMIN 4.6 G/DL (3.2-5.2); ALKALINE PHOSPHATASE 100 U/L (46-116); ALT/SGPT 49 U/L (7.0-40); AST/SGOT 59 U/L (<34); BILIRUBIN,DIRECT 0.3 MG/DL (<0.4); BLOOD UREA NITROGEN 14 MG/DL (9-23); CALCIUM LEVEL 9.7 MG/DL (8.3-10.6); CARBON DIOXIDE LEVEL 22 MMOL/L (20-31); CHLORIDE LEVEL 103 MMOL/L (98-107); CK-MB VALUE MASS 22.4 NG/ML (<3.6); CPK CREATINE PHOSPHOKINASE 450 U/L (46-171); GLOMERULAR FILTRATION RATE > 60.0 (>49); GLUCOSE, FASTING 111 MG/DL (74-106); MB/CK RELATIVE INDEX 4.97 (< OR =4); POTASSIUM SERUM 4.7 MMOL/L (3.5-5.1); SODIUM LEVEL 135 MMOL/L (136-145); THYROID STIMULATING HORMONE 2.351 uIU/ML (0.55-4.78); TOTAL PROTEIN 7.6 G/DL (5.7-8.2)
[2023-02-04] MEDS ORDERED: hydrALAZINE 20MG/ML 1ML VIAL IV ONE (00:20)
[2023-02-04 00:27] VITALS: BP 225/125
[2023-02-04 00:44] LABS: CK-MB VALUE MASS 9.7 NG/ML (<3.6)
[2023-02-04 00:46] LABS: MB/CK RELATIVE INDEX 2.63 (< OR =4)
[2023-02-04] MEDS ORDERED: TELMISARTAN 20 MG TAB PO STA (00:52)
[2023-02-04] MEDS ORDERED: ONDANSETRON 4MG 2ML VIAL IV ONE (01:15)
[2023-02-04 01:30] LABS: D-DIMER QUANT 300.94 ng/ml (<500)
[2023-02-04 02:15] VITALS: BP 140/76
[2023-02-04] MEDS ORDERED: KETOROLAC 30 MG/ML 1ML VIAL IV ONE (02:35)
[2023-02-04 02:44] LABS: APPEARANCE, URINE CLEAR (CLEAR); BACTERIA, URINE AUTO NEGATIVE (NEGATIVE); BILIRUBIN, URINE AUTO NEGATIVE (NEGATIVE); BLOOD, URINE BLOOD NEGATIVE (NEGATIVE); COLOR, URINE YELLOW (YELLOW); GLUCOSE, URINE (UA) AUTO NEGATIVE (NEGATIVE); KETONE, URINE AUTO 1+ mg/dL (NEGATIVE); LEUKOCYTE ESTERASE, URINE AUTO NEGATIVE (NEGATIVE); MUCUS, URINE SMALL (NEGATIVE); NITRITE, URINE AUTO NEGATIVE (NEGATIVE); PROTEIN, URINE AUTO NEGATIVE (NEGATIVE); RBC, URINE AUTO 0 /HPF (0-3); SPECIFIC GRAVITY URINE AUTO 1.014 (1.002-1.035); SQUAMOUS EPITHELIAL CELL UR AU 1 /HPF (0-6); UROBILINOGEN, URINE AUTO 0.2 mg/dL (0.0-2.0); WBC, URINE AUTO 1 /HPF (0-3)
== END 2023-02-04 03:09 | disposition home or self-care (01) ==
LOC: M ED 19:46
DX: I67.4 Hypertensive encephalopathy (principal); R00.1 Bradycardia, unspecified; I10 Essential (primary) hypertension; E78.5 Hyperlipidemia, unspecified; F32.A Depression, unspecified; F10.10 Alcohol abuse, uncomplicated; K27.3 Acute peptic ulcer, site unspecified, without hemorrhage or perforation; Z79.02 Long term (current) use of antithrombotics/antiplatelets; Z79.52 Long term (current) use of systemic steroids; Z79.899 Other long term (current) drug therapy
CPT/HCPCS: 70450; 71045; 80048; 80076; 81001; 82550; 82553; 83880; 84443; 84484; 85025; 85379; 85610; 87486; 87581; 87633; 87798; 93005; 93041; 94760; 96374; 96375; 99285; J0360; J1885; J2405

== ENCOUNTER → 2023-02-08 | Outpatient (CLI) | payer MEDICARE, OTHER ==
[2023-02-08 13:31] LABS: BASO % 0.2 % (0.0-1.0); EOS # 0.1 10^3/uL (0.0-0.5); EOS % 0.7 % (0.0-3.0); HEMATOCRIT 52.4 % (42.0-52.0); HEMOGLOBIN 18.1 g/dl (13.5-17.5); LYMPH # 2.3 10^3/uL (1.5-5.0); LYMPH % 24.8 % (24.0-44.0); MEAN CORPUSCULAR HEMOGLOBIN 32.3 pg (27.0-33.0); MEAN CORPUSCULAR HGB CONC 34.5 g/dl (32.0-36.5); MEAN CORPUSCULAR VOLUME 93.6 fl (80.0-96.0); MONO # 0.7 10^3/uL (0.0-0.8); MONO % 7.3 % (2.0-8.0); NEUTROPHILS # 6.3 10^3/uL (1.5-8.5); NEUTROPHILS % 66.7 % (36.0-66.0); PLATELET COUNT, AUTOMATED 215 10^3/uL (150-450); WHITE BLOOD COUNT 9.4 10^3/uL (4.0-10.0)
[2023-02-08 13:39] LABS: BLOOD UREA NITROGEN 31 MG/DL (9-23); CALCIUM LEVEL 10.2 MG/DL (8.3-10.6); CARBON DIOXIDE LEVEL 27 MMOL/L (20-31); CHLORIDE LEVEL 101 MMOL/L (98-107); CHOLESTEROL LEVEL 116 MG/DL (<200); CHOLESTEROL RISK RATIO 3.63 (<5); CREATININE FOR GFR 1.09 MG/DL (0.70-1.30); FREE T4 1.28 NG/DL (0.89-1.76); GLOMERULAR FILTRATION RATE > 60.0 (>49); GLUCOSE, FASTING 112 MG/DL (74-106); HDL CHOLESTEROL 31.9 MG/DL (>40); LDL CHOLESTEROL 59.3 MG/DL (<100); NON-HDL-C 84.1 MG/DL; SODIUM LEVEL 134 MMOL/L (136-145); THYROID STIMULATING HORMONE 1.139 uIU/ML (0.55-4.78); TRIGLYCERIDES LEVEL 124 MG/DL (<150)
[2023-02-08 13:42] LABS: CPK CREATINE PHOSPHOKINASE 101 U/L (46-171)
[2023-02-08 13:54] LABS: HEMOGLOBIN A1c 5.7 % (4.0-6.0)
[2023-02-08 13:58] LABS: CREATININE, URINE 220.6 MG/DL; MAU/CREAT RATIO 27.6 MCG/MG (0.0-30.0)
== END ==
LOC: M PLALAB 11:14
PROVIDERS: ATTEND Nurse Practitioner Family
DX: R73.03 Prediabetes (principal); I10 Essential (primary) hypertension; E78.2 Mixed hyperlipidemia

== ENCOUNTER → 2023-05-08 | Outpatient (CLI) | payer MEDICARE, OTHER ==
[2023-05-08 13:50] LABS: BASO % 0.3 % (0.0-1.0); EOS # 0.1 10^3/uL (0.0-0.5); EOS % 1.4 % (0.0-3.0); HEMOGLOBIN 15.6 g/dl (13.5-17.5); LYMPH # 2.6 10^3/uL (1.5-5.0); LYMPH % 33.3 % (24.0-44.0); MEAN CORPUSCULAR HEMOGLOBIN 33.2 pg (27.0-33.0); MEAN CORPUSCULAR HGB CONC 34.7 g/dl (32.0-36.5); MEAN CORPUSCULAR VOLUME 95.7 fl (80.0-96.0); MONO # 0.7 10^3/uL (0.0-0.8); MONO % 8.3 % (2.0-8.0); NEUTROPHILS # 4.5 10^3/uL (1.5-8.5); NEUTROPHILS % 56.3 % (36.0-66.0); PLATELET COUNT, AUTOMATED 136 10^3/uL (150-450); WHITE BLOOD COUNT 7.9 10^3/uL (4.0-10.0)
[2023-05-08 14:16] LABS: ALBUMIN 4.2 G/DL (3.2-5.2); ALKALINE PHOSPHATASE 121 U/L (46-116); ALT/SGPT 56 U/L (7.0-40); AST/SGOT 28 U/L (<34); BILIRUBIN,TOTAL 0.7 MG/DL (0.3-1.2); BLOOD UREA NITROGEN 20 MG/DL (9-23); CALCIUM LEVEL 9.7 MG/DL (8.3-10.6); CARBON DIOXIDE LEVEL 25 MMOL/L (20-31); CHLORIDE LEVEL 104 MMOL/L (98-107); GLOMERULAR FILTRATION RATE > 60.0 (>42); GLUCOSE, FASTING 125 MG/DL (74-106); POTASSIUM SERUM 4.5 MMOL/L (3.5-5.1); SODIUM LEVEL 139 MMOL/L (136-145); TOTAL PROTEIN 7.2 G/DL (5.7-8.2)
[2023-05-08 14:18] LABS: HEMOGLOBIN A1c 6.9 % (4.0-6.0)
== END ==
LOC: M PLALAB 11:49
PROVIDERS: ATTEND Nurse Practitioner Family
DX: R73.03 Prediabetes (principal); I10 Essential (primary) hypertension; E78.2 Mixed hyperlipidemia

== ENCOUNTER → 2023-08-12 | Outpatient (CLI) | payer MEDICARE, OTHER ==
[2023-08-12 14:19] LABS: HEMOGLOBIN A1c 6.8 % (4.0-6.0)
== END ==
LOC: M PLALAB 09:59
PROVIDERS: ATTEND Nurse Practitioner Family
DX: R73.03 Prediabetes (principal)

== ENCOUNTER → 2024-02-10 | Outpatient (CLI) | payer MEDICARE, OTHER ==
[~2024-02-10] MED LIST changes: -FLUT50SP17 NARES; +FLUTISP NARES
[2024-02-10 16:15] LABS: HEMOGLOBIN A1c 8.8 % (4.0-6.0)
[2024-02-10 16:24] LABS: ALBUMIN 4.2 G/DL (3.2-5.2); ALKALINE PHOSPHATASE 135 U/L (46-116); ALT/SGPT 50 U/L (7.0-40); AST/SGOT 30 U/L (<34); BILIRUBIN,TOTAL 0.8 MG/DL (0.3-1.2); BLOOD UREA NITROGEN 20 MG/DL (9-23); CALCIUM LEVEL 10.1 MG/DL (8.3-10.6); CARBON DIOXIDE LEVEL 24 MMOL/L (20-31); CHLORIDE LEVEL 103 MMOL/L (98-107); CHOLESTEROL LEVEL 134 MG/DL (<200); CHOLESTEROL RISK RATIO 4.92 (<5); CREATININE FOR GFR 1.04 MG/DL (0.70-1.30); GLOMERULAR FILTRATION RATE > 60.0 (>42); GLUCOSE, FASTING 147 MG/DL (74-106); HDL CHOLESTEROL 27.2 MG/DL (>40); NON-HDL-C 106.8 MG/DL; POTASSIUM SERUM 4.3 MMOL/L (3.5-5.1); SODIUM LEVEL 135 MMOL/L (136-145); TOTAL PROTEIN 7.1 G/DL (5.7-8.2); TRIGLYCERIDES LEVEL 430 MG/DL (<150)
[2024-02-10 16:25] LABS: MAU/CREAT RATIO 40.2 MCG/MG (0.0-30.0)
== END ==
LOC: M PLALAB 14:16
PROVIDERS: ATTEND Nurse Practitioner Family
DX: I10 Essential (primary) hypertension (principal); E78.2 Mixed hyperlipidemia; E11.9 Type 2 diabetes mellitus without complications

== ENCOUNTER → 2024-05-14 | Outpatient (CLI) | payer MEDICARE, OTHER ==
[2024-05-14 15:59] LABS: HEMOGLOBIN A1c 6.2 % (4.0-6.0)
== END ==
LOC: M PLALAB 11:49
PROVIDERS: ATTEND Nurse Practitioner Family
DX: E11.9 Type 2 diabetes mellitus without complications (principal)

== ENCOUNTER → 2024-11-10 | Outpatient (CLI) | payer MEDICARE, OTHER ==
[2024-11-10 15:17] LABS: HEMOGLOBIN A1c 6.5 % (4.0-6.0)
== END ==
LOC: M PLALAB 12:38
PROVIDERS: ATTEND Nurse Practitioner Family
DX: E11.9 Type 2 diabetes mellitus without complications (principal)

== ENCOUNTER → 2025-05-13 | Outpatient (CLI) | payer MEDICARE, OTHER ==
[~2025-05-13] MED LIST changes: +ERGO500029 PO; +METF-838 PO; -MICA80TA2; +MICA80TA2 PO; -SIMV20TA22; +SIMV20TA22 PO; -ZOLO100T; +ZOLO100T PO
[2025-05-13 14:39] LABS: CREATININE, URINE 109.8 MG/DL
[2025-05-13 14:41] LABS: MALB URINE SIEMENS 8.0 MG/L; MAU/CREAT RATIO 7.2 MCG/MG (0.0-30.0)
[2025-05-13 14:46] LABS: ALT/SGPT 55.0 U/L (7.0-40); AST/SGOT 35.0 U/L (<34); CALCIUM LEVEL 9.5 MG/DL (8.3-10.6); CARBON DIOXIDE LEVEL 26.0 MMOL/L (20-31); CHLORIDE LEVEL 102.0 MMOL/L (98-107); CHOLESTEROL LEVEL 123.0 MG/DL (<200); CHOLESTEROL RISK RATIO 3.94 (<5); CREATININE FOR GFR 1.03 MG/DL (0.70-1.30); GLOMERULAR FILTRATION RATE 77.2 (>42); LDL CHOLESTEROL 35.0 MG/DL (<100); NON-HDL-C 91.8 MG/DL; POTASSIUM SERUM 5.0 MMOL/L (3.5-5.1); SODIUM LEVEL 138.0 MMOL/L (136-145); TRIGLYCERIDES LEVEL 284.0 MG/DL (<150)
[2025-05-13 17:03] LABS: ESTIMATED AVERAGE GLUCOSE 131.0 MG/DL (60-110)
== END ==
LOC: M PLALAB 11:55
PROVIDERS: ATTEND Nurse Practitioner Family
DX: I10 Essential (primary) hypertension (principal); E11.9 Type 2 diabetes mellitus without complications; E78.2 Mixed hyperlipidemia

== ENCOUNTER → 2025-06-10 | Outpatient (CLI) | payer MEDICARE, OTHER | LOC: M PLALAB 12:18 | PROVIDERS: ATTEND Nurse Practitioner Family | DX: N42.9 Disorder of prostate, unspecified (principal); Z12.5 Encounter for screening for malignant neoplasm of prostate | CPT/HCPCS: 36415; G0103 ==

== ENCOUNTER → 2025-06-22 | Outpatient (CLI) | payer MEDICARE, OTHER ==
[~2025-06-22] MED LIST changes: +BICA50TA4 PO; +ELIQ5TAB PO; +eligard ID.IMMUN
[2025-06-23 12:48] LABS: PSA FREE > 17.0 ng/mL; PSA TOTAL 320.7 ng/mL (< OR = 4.0)
== END ==
LOC: M PLALAB 11:02
PROVIDERS: ATTEND Urology
DX: R97.20 Elevated prostate specific antigen [PSA] (principal)

== ENCOUNTER → 2025-06-25 | Outpatient (REF) | payer MEDICARE, OTHER | LOC: M SMT PRO 13:10 | PROVIDERS: ATTEND Urology | DX: C61 Malignant neoplasm of prostate (principal); R97.20 Elevated prostate specific antigen [PSA]; Z79.84 Long term (current) use of oral hypoglycemic drugs; Z79.899 Other long term (current) drug therapy ==

== ENCOUNTER 2025-06-29 14:48 | Emergency (ER) | payer MEDICARE, OTHER ==
[~2025-06-29] VITALS: Ht 172.7 cm; Wt 88.5 kg
[~2025-06-29 14:48] MED LIST changes: -BICA50TA4 PO; -ELIQ5TAB PO; -eligard ID.IMMUN
[2025-06-29 14:50] VITALS: TEMP 98.6
[2025-06-29 15:33] LABS: PLATELET COUNT, AUTOMATED 155 10^3/uL (150-450)
[2025-06-29 16:05] LABS: CALCIUM LEVEL 9.7 MG/DL (8.3-10.6); CARBON DIOXIDE LEVEL 20 MMOL/L (20-31); CHLORIDE LEVEL 108 MMOL/L (98-107); CREATININE FOR GFR 0.89 MG/DL (0.70-1.30); GLOMERULAR FILTRATION RATE > 90.0 (>42); MAGNESIUM LEVEL 1.5 MG/DL (1.8-2.4); POTASSIUM SERUM 4.2 MMOL/L (3.5-5.1); SODIUM LEVEL 141 MMOL/L (136-145)
[2025-06-29] MEDS: MAG SULF 1GM/100ML (MAG RUN) 1 GM in IV 1 EA IV ONE ×2 (17:00→18:03)
[2025-06-29] MEDS: APIXABAN 5 MG TAB PO ONE (17:00)
[2025-06-29] MEDS ORDERED: ELIQ5TAB PO (19:43)
[2025-06-29 20:03] VITALS: BP 108/74; O2SAT 96
== END 2025-06-29 20:08 | disposition home or self-care (01) ==
LOC: M ED 14:48
DX: I48.91 Unspecified atrial fibrillation (principal); E11.9 Type 2 diabetes mellitus without complications; I10 Essential (primary) hypertension; F12.10 Cannabis abuse, uncomplicated; F10.10 Alcohol abuse, uncomplicated; Z88.8 Allergy status to other drugs, medicaments and biological substances; Z91.048 Other nonmedicinal substance allergy status; Z86.79 Personal history of other diseases of the circulatory system; Z79.01 Long term (current) use of anticoagulants; Z79.4 Long term (current) use of insulin; Z79.899 Other long term (current) drug therapy
CPT/HCPCS: 71045; 80048; 83735; 84443; 84484; 85027; 93005; 93041; 96365; 96366; 99285; J3475

== ENCOUNTER → 2025-07-20 | Outpatient (CLI) | payer MEDICARE, OTHER ==
[~2025-07-20] MED LIST changes: +BICA50TA4 PO; +ELIQ5TAB PO; +eligard ID.IMMUN
[2025-07-20 14:08] LABS: FREE T4 1.29 NG/DL (0.89-1.76)
== END ==
LOC: M PLALAB 11:27
PROVIDERS: ATTEND Internal Medicine Cardiovascular Disease
DX: I48.0 Paroxysmal atrial fibrillation (principal)

== ENCOUNTER → 2025-08-05 | Outpatient (CLI) | payer MEDICARE, OTHER ==
[~2025-08-05] MED LIST changes: +ABIR500T PO; +PRED5TA PO
== END ==
LOC: M PLALAB 10:26
PROVIDERS: ATTEND Urology
DX: C61 Malignant neoplasm of prostate (principal)

== ENCOUNTER → 2025-09-06 | Outpatient (CLI) | payer MEDICARE, OTHER ==
[2025-09-06 10:56] LABS: BASO # 0.0 10^3/uL (0.0-0.2); BASO % 0.1 % (0.0-1.0); EOS # 0.1 10^3/uL (0.0-0.5); EOS % 1.2 % (0.0-3.0); LYMPH # 1.7 10^3/uL (1.5-5.0); LYMPH % 16.3 % (24.0-44.0); MONO # 1.0 10^3/uL (0.0-0.8); MONO % 9.3 % (2.0-8.0); NEUTROPHILS # 7.5 10^3/uL (1.5-8.5); NEUTROPHILS % 72.8 % (36.0-66.0); PLATELET COUNT, AUTOMATED 204 10^3/uL (150-450)
[2025-09-06 10:59] LABS: ALT/SGPT 63 U/L (7.0-40); AST/SGOT 50 U/L (<34); CALCIUM LEVEL 9.4 MG/DL (8.3-10.6); CARBON DIOXIDE LEVEL 26 MMOL/L (20-31); CHLORIDE LEVEL 100 MMOL/L (98-107); CREATININE FOR GFR 1.53 MG/DL (0.70-1.30); GLOMERULAR FILTRATION RATE 48.0 (>42); MAGNESIUM LEVEL 1.8 MG/DL (1.8-2.4); POTASSIUM SERUM 3.7 MMOL/L (3.5-5.1); PROSTATIC SPECIFIC AG MONITOR 8.97 NG/ML (< 4.00); SODIUM LEVEL 137 MMOL/L (136-145)
[2025-09-06 11:25] LABS: TESTOSTERONE < 7 NG/DL (241-827)
== END ==
LOC: M PLALAB 08:23
PROVIDERS: ATTEND Student in an Organized Health Care Education/Training Program
DX: C61 Malignant neoplasm of prostate (principal)